=== PATIENT | male | born 1995 | race Caucasian/White ===

== ENCOUNTER 2022-12-22 22:25 | Emergency (ER) | payer OTHER, SELFPAY ==
[2022-12-22 22:29] VITALS: BP 139/65; PULSE 88; RESP 18; TEMP 36.7; O2SAT 98; BMI 40.9
--- NOTE | 2022-12-23 00:20 | ED.EYEPROB ---
HPI - Eye Problem General Chief complaint: Headache Stated complaint: headache behind right eye,feels off Time Seen by Provider: 12/23/22 00:07 Source: patient Mode of arrival: ambulatory Limitations: no limitations History of Present Illness HPI Narrative: Patient history of pterygium right eye been having more pain and redness for last 5 days after patient rubbed his right eye pain increased and I wall movement no discharge from the eye no headache no history of migraine no vision loss Related Data Previous Rx's Medication Instructions Recorded ketotifen fumarate 0.025 % (0.035 1 drp ophthalmic (eye) BID PRN 12/23/22 %) eye drops (Allergy Eye allergy symptoms #5 mL (ketotifen)) Allergies Allergy/AdvReac Type Severity Reaction Status Date / Time No Known Allergies Allergy Verified 12/22/22 22:29 Review of Systems Review of Systems: Yes all other systems are reviewed and are negative [facility] Social History Social History Advance Directives: No Advance Directives Information Provided: Yes Physical Exam Vital Signs: Vital Signs: Last Vital Signs Temp 98.0 F 12/22/22 22:29 Pulse 88 12/22/22 22:29 Resp 18 12/22/22 22:29 BP 139/65 12/22/22 22:29 Pulse Ox 98 12/22/22 22:29 O2 Del Method Room Air 12/22/22 22:29 BMI result Body Mass Index 40.9 Appearance: Alert. Oriented X3. No acute distress. Eyes: PERRLA, No Nystagmus normal cornea, anterior chamber N, IOP 12 both eyes ENT: Pharynx normal. Oral Mucosa moist Neck: Normal inspection. Neck supple. CVS: Normal heart rate and rhythm. Pulses normal. Respiratory: No respiratory distress. Equal air entry bilateral, no wheezing/rales/rhonchi Abdomen: Soft and nontender. Bowel sounds are present, no mass palpable, no CVA tenderness Skin: Skin warm and dry. Normal skin color. Normal skin turgor. Extremities: No lower extremity edema. No calf tenderness Neuro: Oriented X 3. No motor deficit. No sensory deficit.No cerebellar signs , cranial nerves II-XII intact Eyes: Eyes/upper lids images: 1. Pterygium on the right eye with slight erythema no covering of the cornea EOMI Medical Decision Making Medical Decision Making [facility] Narrative: Patient with inflammation of the right eye pterygium requested the CT scan of the head which was negative patient will be discharged advised to use ketoprofen eyedrops to and follow with eye doctor Differential Diagnosis Differential Diagnoses: The differential diagnosis associated with the presentation includes Allergic conjunctivitis/glaucoma/coronal abrasion/migraine Radiology Impression Discussion of test interpretation with radiology: I have reviewed the radiologist's reading. Discharge Plan Discharge Clinical Impression: Pterygium of right eye, Allergic conjunctivitis Patient Disposition: Home, Self-Care Instructions: Pterygium (ED), Conjunctivitis (ED) Additional Instructions: You have inflammation of the right eye pterygium use eyedrops as prescribed Follow-up with eye doctor if any concerns Prescriptions: New ketotifen fumarate [Allergy Eye (ketotifen)] 0.025 % (0.035 %) drops 1 drp ophthalmic (eye) BID PRN (Reason: allergy symptoms) Qty: 5 0RF Rx Instructions: administer at least 8 hours apart Referrals: Stevan Pichardo [Physician] - 1 week
== END 2022-12-23 02:09 | disposition home or self-care (01) ==
PROVIDERS: Emergency Provider Internal Medicine
DX: H11.001 Unspecified pterygium of right eye (principal); H10.11 Acute atopic conjunctivitis, right eye
CPT/HCPCS: 70450; 99284

== ENCOUNTER 2023-03-15 09:36 | Emergency (ER) | payer OTHER, SELFPAY ==
--- NOTE | ~2023-03-15 | US_ITS ---
EXAMINATION: US VENOUS ULTRASOUND WITH DOPPLER LOWER EXTREMITY, LEFT CLINICAL INFORMATION: Left lower extremity pain. Focal area of pain in the left mid calf. COMPARISON: None available. TECHNIQUE: Ultrasound of the deep veins is performed from the hip to the calf with compression sonography and color and pulse Doppler assessment. Spectral analysis with color-flow imaging is performed. FINDINGS: There is normal venous compression and respiratory variation and augmented flow. The visualized common femoral vein, superficial femoral vein, profunda femoral vein, popliteal vein, and the trifurcation region shows no evidence of deep venous thrombosis. There is no significant popliteal fossa cyst. Targeted ultrasound images obtained by the credit rating inspector of the area of pain at the left mid calf correlate with an apparent large varicosity with greater than 2338 m/s of reflux, and AP measurement of 0.6 cm. This varicosity appears to rise from the GSV at the level of the mid thigh. If the patient's symptoms persist, follow-up ultrasound in 5 days 7 days might be of value to exclude proximal propagation from a non-visualized calf vein. US/US venous duplex LE LT IMPRESSION: 1. No DVT demonstrated in the left lower extremity. 2. Large varicosity in the area of pain at the left mid calf correlate with an apparent large varicosity with greater than 2338 m/s of reflux, and AP measurement of 0.6 cm. This varicosity appears to rise from the GSV at the level of the mid thigh. 3. If the patient's symptoms persist, follow-up ultrasound in 5 days 7 days might be of value to exclude proximal propagation from a non-visualized calf vein. In the mid left calf correlates with apparent varicosity as detailed above. This study was presented today 03/15/2023 at 11:15 AM for interpretation. Stat results provided at this time as requested by referring provider.
[2023-03-15 09:43] VITALS: BP 127/73; PULSE 58; RESP 16; TEMP 36.3; O2SAT 97; BMI 41.6
--- OUTSIDE RECORDS SUMMARY | 2023-03-15 09:57 | XMS_ITS | Patient Health Record ---
Author Name Unknown Organization [address] Address [address] [facility] [address] [place] [address] Care Team Providers Care Larry Operator Name Role Phone YAIMA ELI Unavailable [phone] ALLERGIES No Known Allergies REASON FOR REFERRAL No Information MEDICATIONS Medication SIG (Take, Route, Fr equency, Duration) Notes Start Date End Date Status Dupixent 300 MG/2ML as directed Subcutaneous Active SOCIAL HISTORY Tobacco Use: Social History Observation Description Date Details (start date - stop date) Never Smoker NA - NA Sex Assigned At : Social History Observation Description Sex Assigned At Unknown Tobacco Use/Smoking Question Answer Notes Are you a nonsmoker PROBLEMS Problem Type ICD Code Onset Dates Problem Status W/U Status Risk SNOMED Code Notes Problem BMI 40.0-44.9, adult (Z68.41) Active confirmed Body mass index 40+ - morbidly obese (528400636) Problem Obesity, morbid, BMI 40.0-49.9 (E66.01) Active confirmed Morbid obesity (570165088) Problem Nasal polyp (J33.9) Active confirmed Nasal polyp (92886512) VITAL SIGNS Heart Rate 86 /min 01/03/2023 Blood pressure diastolic 82 mm Hg 01/03/2023 Oximetry 99 % 01/03/2023 Height 73 in 01/03/2023 Blood pressure systolic 120 mm Hg 01/03/2023 Weight 314.4 lbs 01/03/2023 BMI 41.48 kg/m2 01/03/2023 Encounters Encounter Location Date Provider Diagnosis [facility] [address] [place] [address] 01/24[facility]20[facility] [address] [place] [address] 01/03/2023 YAIMA [employer] Obesity, morbid, BMI 40.0-49.9 E66.01 ; BMI 40.0-44.9, adult Z68.41 ; Nasal polyp J33.9 ; Lipid screening Z13.220 and Screening for diabetes mellitus Z13.1 [facility] [address] [place] [address] 12/30/2022 YAIMA CARTER [employer] ASSESSMENTS Encounter Date Diagnosis Assessment Notes Treatment Notes Treatment Clinical Notes 01/03/2023 BMI 40.0-44.9, adult (ICD-10 - Z68.41) 01/03/2023 Obesity, morbid, BMI 40.0-49.9 (ICD-10 - E66.01) 01/03/2023 Nasal polyp (ICD-10 - J33.9) 01/03/2023 Lipid screening (ICD-10 - Z13.220) 01/03/2023 Screening for diabetes mellitus (ICD-10 - Z13.1) PLAN OF TREATMENT Pending Test Test Name Order Date LIPID PANEL, STANDARD 01/03/2023 HEMOGLOBIN A1c 01/03/2023 INSULIN 01/03/2023 Insurance Providers Payer Name Payer Address Payer Phone Subscriber Number Group Number Insured Name Patient Relationship to Insured Coverage Start Date Coverage End Date [employer] [place] [address] [address] [place] [address] [id number] PAULA PAUL Self - patient is the insured 3 MEDICAL (GENERAL) HISTORY Medical History History ICD Code nasal polyps morbid obesity Surgical History Surgery Date(Month/Year) nasal polyposis removal
--- NOTE | 2023-03-15 09:59 | ED_ITS ---
HPI - General Adult General Chief complaint: Extremity Injury, Lower Stated complaint: Pain left leg Time Seen by Provider: 03/15/23 09:42 Source: patient Mode of arrival: ambulatory Limitations: no limitations History of Present Illness HPI narrative: 27-year-old male presents with concerns of left lower extremity pain, swelling worsening over the past 2 days. Atraumatic. Patient reports family history of factor 5 Leiden however he does not have a personal history of this. He reports at baseline he does have varicose veins to that left lower extremity. He reports an aching pain in 1 particular area in his calf. Unable to tell me exactly what makes it better or worse. No fevers, chills, numbness, tingling Related Data Previous Rx's Medication Instructions Recorded ketotifen fumarate 0.025 % (0.035 1 drp ophthalmic (eye) BID PRN 12/23/22 %) eye drops (Allergy Eye allergy symptoms #5 mL (ketotifen)) ketorolac 10 mg tablet 10 mg PO TID PRN pain 5 days #15 03/15/23 tabs Allergies Allergy/AdvReac Type Severity Reaction Status Date / Time No Known Allergies Allergy Verified 03/15/23 09:42 Review of Systems Review of Systems: Constitutional : No Weight loss, No Fever, No Chills, No Fatigue, No Malaise ENT/Mouth : No sore throat, No Rhinorrhea Eyes: No Eye Pain, No Swelling, No Redness Cardiovascular : No Chest Pain, No SOB, No Dyspnea on Exertion, No Orthopnea, No Edema, No Palpitations Respiratory : No Cough, No Sputum, No Wheezing Gastrointestinal : No Nausea, No Vomiting, No Diarrhea, No Constipation, No abdominal Pain, No Hematochezia, No Melena Genitourinary : No Dysuria, No Urinary Frequency, No Hematuria, Musculoskeletal : No joint pain, No Myalgias, No Joint Swelling, + leg swelling Skin : No Skin Lesions, No rash Neuro : No Weakness, No Numbness, No Dizziness, No Headache Psych : No Anxiety/Panic, No Depression All other systems reviewed and are negative Yes all other systems are reviewed and are negative [facility] Past Medical History Attestation statement: The following information was validated with the patient. Source: old records reviewed and nursing notes reviewed Social History Social History Smoked in Last 30 Days: No Advance Directives: No Advance Directives Information Provided: No Physical Exam ED Vital Signs: Vital Signs - 24 hr 03/15/23 09:43 Temperature 97.4 F Pulse Rate 58 Respiratory Rate 16 Blood Pressure 127/73 Pulse Oximetry 97 Oxygen Delivery Method Room Air BMI result Body Mass Index 41.6 vss Appearance: Alert.? Oriented X3.? No acute distress.? Head: Normocephalic, atraumatic, no step-offs or deformities Eyes: Pupils equal, round and reactive to light.? ENT: Pharynx normal.? Neck: Normal inspection.? Neck supple.? CVS: Normal heart rate and rhythm.? Pulses normal.? Respiratory: No respiratory distress.? Breath sounds normal.? Skin: Skin warm and dry.? Normal skin color.? Normal skin turgor.? Extremities: +1+ lle edema from the orona down, no edema to RLE. Slight discomfort w/ manipulation of L calf. No discomfort w/ manipulation of right calf. 2+ popliteal, DP,AT pulses equal and b/l. No foot drop. Normal sensation distally. + vericose veins to LLE. 5/5 strength to bilateral upper and lower extremities Neuro: Oriented X 3.? No motor deficit.? No sensory deficit. CN 2-12 intact Course Reevaluation(s) Reevaluation #1: Ultrasound without DVT. Large varicosity in the area of pain in the left mid calf, will have him follow-up with vascular, give him vascular is information. Will give Toradol. Educated patient on diagnosis and treatment plan, answered all question, patient verbalizes understanding. At this time patient will be discharged home, advised to return with new or worsening symptoms. Educated on worrisome signs and symptoms and when to return. At this time I feel comfortable discharge home. Time: 11:35 Medical Decision Making Medical Decision Making MDM Narrative: 27-year-old male presents with left lower extremity pain, swelling X 2 days On exam +1+ lle edema from the orona down, no edema to RLE. Slight discomfort w/ manipulation of L calf. No discomfort w/ manipulation of right calf. 2+ popliteal, DP,AT pulses equal and b/l. No foot drop. Normal sensation distally. + vericose veins to LLE. 5/5 strength to bilateral upper and lower extremities Likely thrombophlebitis versus DVT. Unlikely arterial occlusion, threat to limber neurovascular compromise. No signs of cellulitis. Plan at this time will obtain DVT study. Differential Diagnosis Differential Diagnoses: The differential diagnosis associated with the presentation includes Likely thrombophlebitis versus DVT. Unlikely arterial occlusion, threat to limber neurovascular compromise. No signs of cellulitis. Admission/Observation Consideration of admission/observation: Escalation of care including admission/observation considered unlikely Independent Interpretation I performed an independent interpretation of an: Ultrasound Radiology Impression Discussion of test interpretation with radiology: I have reviewed the radiologist's reading. Critical Care Time Critical Care Time Critical Care Time: No Discharge Plan Discharge Clinical Impression: Thrombophlebitis, Varicose vein of leg Patient Disposition: Home, Self-Care Additional Instructions: Take your medications as prescribed. If you were prescribed antibiotics today, it is important that you take your medication to their entirety, do not skip any doses, do not finish them early. Follow-up with your primary care provider this week. Return to the emergency department with new or worsening symptoms. Such as fevers, chills, chest pain, shortness of breath, nausea, vomiting, dizziness, headache, vision changes, lethargy In case of emergency call 911 Toradol has been sent to your pharmacy, you tolerated this well in the department. Please take this as prescribed do not take this with ibuprofen, or other NSAIDs, do not mix this with alcohol. Side effects of this medication including increased risk for bleeding and possible kidney injury. US/US venous duplex LE LT IMPRESSION: 1. No DVT demonstrated in the left lower extremity. 2. Large varicosity in the area of pain at the left mid calf correlate with an apparent large varicosity with greater than 2338 m/s of reflux, and AP measurement of 0.6 cm. This varicosity appears to rise from the GSV at the level of the mid thigh. 3. If the patient's symptoms persist, follow-up ultrasound in 5 days 7 days might be of value to exclude proximal propagation from a non-visualized calf vein. In the mid left calf correlates with apparent varicosity as detailed above. This study was presented today 03/15/2023 at 11:15 AM for interpretation. Stat results provided at this time as requested by referring provider. Prescriptions: New ketorolac 10 mg tablet 10 mg PO TID PRN (Reason: pain) 5 Days Qty: 15 0RF No Action ketotifen fumarate [Allergy Eye (ketotifen)] 0.025 % (0.035 %) drops 1 drp ophthalmic (eye) BID PRN (Reason: allergy symptoms) Qty: 5 0RF Rx Instructions: administer at least 8 hours apart Referrals: Jt Byrnes MD [Physician] - 1 day Mario Oliva DO, MD [Primary Care Provider] - 2 days
[2023-03-15] MEDS: Ketorolac Tromethamine 30 MG/ML VIAL IM (12:24)
== END 2023-03-15 12:27 | disposition home or self-care (01) ==
PROVIDERS: Emergency Provider Emergency Medicine Emergency Medical Services; PCP Internal Medicine
DX: I80.3 Phlebitis and thrombophlebitis of lower extremities, unspecified (principal); I83.92 Asymptomatic varicose veins of left lower extremity
CPT/HCPCS: 93971; 96372; 99284; J1885

== ENCOUNTER 2023-06-30 08:28 | Outpatient (REF) | payer OTHER, SELFPAY ==
[2023-06-30 08:48] LABS: MANUAL DIFF FLAG NO
[2023-06-30 09:26] LABS: Basophils Percent Auto 0.7 % (0-2); Eosinophils Absolute Auto 0.5 X10*3/uL (0.0-0.4); Eosinophils Percent Auto 8.3 % (0-4); Hematocrit 45.3 % (42.0-52.0); Imm Gran Abs Auto 0.02 X10*3/uL (0.00-0.03); Imm Gran Pct Auto 0.3 % (0.0-0.4); Lymphocytes Percent Auto 33.7 % (20-40); Mean Corpuscular HGB Conc 33.1 g/dl (31.0-36.0); Mean Corpuscular Hemoglobin 29.8 pg (27.0-33.0); Mean Corpuscular Volume 89.9 fL (80.0-98.0); Mean Platelet Volume 10.2 fL (9.4-12.4); Monocytes Absolute Auto 0.3 X10*3/uL (0.1-1.2); Monocytes Percent Auto 4.8 % (2-11); Neutrophils Percent Auto 52.2 % (45-73); Platelet Count 251 X10*3/uL (160-400); Red Blood Count 5.04 X10*6/uL (4.60-5.80); Red Cell Distribution Width 12.3 % (11.0-16.0); White Blood Count 5.8 X10*3/uL (4.8-10.8)
[2023-06-30 09:44] LABS: C Reactive Protein 0.16 mg/dL (< or = 0.50)
[2023-06-30 09:49] LABS: Rheumatoid Factor < 13.0 IU/mL (<15.0)
[2023-06-30 10:09] LABS: Erythrocyte Sedimentation Rate 14 MM/HR (0-15)
[2023-07-03 11:43] LABS: Anti Nuclear Antibody Screen NEGATIVE (NEGATIVE)
[2023-07-05 20:44] LABS: Angiotensin Converting Enzyme 69 U/L (9-67)
== END 2023-06-30 08:29 | disposition home or self-care (01) ==
LOC: HO.LAB 08:28
PROVIDERS: Visit Provider Ophthalmology
DX: H15.091 Other scleritis, right eye (principal)
CPT/HCPCS: 82164; 85025; 85652; 86038; 86140; 86431; 86780

== ENCOUNTER 2023-09-08 18:53 | Emergency (ER) | payer OTHER, SELFPAY ==
[2023-09-08 18:56] VITALS: BP 118/59; PULSE 78; RESP 17; TEMP 36.7; O2SAT 96; BMI 38.5
--- NOTE | 2023-09-08 18:56 | ED_ITS ---
HPI - General Adult General Chief complaint: Extremity Injury, Upper Stated complaint: Needle stick @ work Time Seen by Provider: 09/08/23 18:54 Source: patient Mode of arrival: ambulatory Limitations: no limitations History of Present Illness ED Provider: Michelle Wayne PA-C HPI narrative: Patient is a 27 year old assigned male at with no reported medical history presenting to the emergency department today with a blood exposure. 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 Patient denies any dizziness, lightheadedness, abdominal pain, nausea, vomiting, fever, chills, blurry vision, double vision, loss of vision, chest pain, difficulty breathing, shortness of breath, back pain, night sweats, pain with urination, increased urinary frequency, increased urinary urgency, blood in his urine or stool, syncope or a near syncopal episode, bowel incontinence, bladder incontinence, or any other complaints at this time. Onset (ago): minute(s) Location: left and upper extremity Radiation: non-radiation Severity: mild Severity scale (1-10): 2 Relieving factors: none Exacerbating factors: none Associated symptoms: denies other symptoms Treatments prior to arrival: other (washed the area multiple times) Related Data Previous Rx's ?Medication ?Instructions ?Recorded ketotifen fumarate 0.025 % (0.035 1 drp ophthalmic (eye) BID PRN 12/23/22 %) eye drops (Allergy Eye allergy symptoms #5 mL (ketotifen)) ketorolac 10 mg tablet 10 mg PO TID PRN pain 5 days #15 03/15/23 tabs Allergies Allergy/AdvReac Type Severity Reaction Status Date / Time No Known Allergies Allergy Verified 09/08/23 19:01 Review of Systems 2 Constitutional: Constitutional: Reports no additional constitutional complaints, Denies chills, Denies fever(s) and Denies night sweats Eyes: Eyes: Reports no additional eye complaints, Denies blurry vision, Denies change in vision, Denies diplopia, Denies eye discharge, Denies loss of vision and Denies eye pain ENT: Denies dizziness Cardiovascular: Cardiovascular: Reports no additional cardiovascular complaints, Denies chest pain, Denies lightheadedness, Denies Loss of Consciousness and Denies dyspnea Respiratory: Respiratory: Reports no additional respiratory complaints and Denies dyspnea Gastrointestinal: Gastrointestinal: Reports no additional gastrointestinal complaints, Denies abdominal pain, Denies melena, Denies hematochezia, Denies change in bowel habits and Denies change in stool character Genitourinary: Genitourinary: Reports no additional male genitourinary complaints, Denies hematuria, Denies oliguria, Denies difficulty urinating, Denies dysuria, Denies urinary frequency, Denies urinary hesitancy, Denies urinary incontinence and Denies urinary urgency Musculoskeletal: Musculoskeletal: Reports no additional musculoskeletal complaints, Denies numbness and Denies tingling Neurologic: Denies dizziness, Denies loss of vision, Denies numbness and Denies tingling Psychiatric: Psychiatric: Reports no additional psychiatric complaints Endocrine: Endocrine: Reports no additional endocrine complaints Hematologic/Lymphatic: Hematologic/Lymphatic: Reports no additional hematologic/lymphatic complaints Allergic/Immunologic: Allergic/Immunologic: Reports no additional allergic/immunologic complaints PMFSH Social History Social History Advance Directives: No Advance Directives Information Provided: No Do you have a plan to hurt others: No Plan Physical Exam ED Vital Signs: Vital Signs - 24 hr 09/08/23 18:56 Temperature 98.0 F Pulse Rate 78 Respiratory Rate 17 Blood Pressure 118/59 L Pulse Oximetry 96 Oxygen Delivery Method Room Air BMI result Body Mass Index 38.5 Medical Decision Making Medical Decision Making MDM Narrative: Patient is a 27 year old assigned male at with no reported medical history presenting to the emergency department today with a blood exposure. Patient's physical exam was unremarkable. Patient's blood work was unremarkable. Patient's hepatitis and HIV testing is pending. I explained my physical exam findings as well as all test results to the patient. I answered all questions asked by the patient. We discussed at length whether or not to start prophylaxis exposure treatment. Through shared decision making, we decided to wait starting prophylactic treatment. I stressed the importance of the patient taking his medication as prescribed. I stressed the importance of the patient following up with his primary care provider and [facility]. I stressed the importance of the patient returning to the emergency department immediately if his symptoms were to worsen or if he were to develop any dizziness, shortness of breath, difficulty breathing, chest pain, blurry vision, loss of vision, nausea, vomiting, abdominal pain, fever, chills, back pain, or any other complaints. Patient verbalized agreement and understanding with this treatment plan and discharge. Differential Diagnosis Differential Diagnoses: The differential diagnosis associated with the presentation includes Blood exposure Admission/Observation Consideration of admission/observation: Escalation of care including admission/observation considered Patient would have been admitted to the hospital had his work up had any findings where hospital admission was appropriate and his clinical presentation warranted hospital admission. Lab Data MDM Lab Attestation statement: I reviewed the patient's lab results. My interpretation of these studies and their corresponding values is that they are grossly normal. 09/08/23 19:24 09/08/23 19:24 Labs: Lab Results 09/08/23 Range/Units 19:24 WBC 9.4 (4.8-10.8) X10*3/uL RBC 5.16 (4.60-5.80) X10*6/uL Hgb 16.0 (14.0-18.0) g/dl Hct 45.6 (42.0-52.0) % MCV 88.4 (80.0-98.0) fL MCH 31.0 (27.0-33.0) pg MCHC 35.1 (31.0-36.0) g/dl RDW 12.2 (11.0-16.0) % Plt Count 242 (160-400) X10*3/uL MPV 10.1 (9.4-12.4) fL Immature Gran % (Auto) 0.3 (0.0-0.4) % Neut % (Auto) 60.0 (45-73) % Lymph % (Auto) 27.9 (20-40) % Jack % (Auto) 5.5 (2-11) % Eos % (Auto) 5.8 H (0-4) % Baso % (Auto) 0.5 (0-2) % Lymph # (Auto) 2.6 (1.2-4.9) X10*3/uL Jack # (Auto) 0.5 (0.1-1.2) X10*3/uL Eos # (Auto) 0.6 H (0.0-0.4) X10*3/uL Baso # (Auto) 0.1 (0.0-0.2) X10*3/uL Abs Immat Gran (auto) 0.03 (0.00-0.03) X10*3/uL Absolute Neuts (auto) 5.6 (2.0-8.3) x10*3/uL Absolute Nucleated RBC 0.000 (0.0-0.012) X10*3/uL Nucleated RBC % (auto) 0.0 (0.0-0.2) /100WBC Sodium 138 (135-145) mmol/L Potassium 4.4 (3.3-5.1) mmol/L Chloride 103 (96-108) mmol/L Carbon Dioxide 27 (22-29) mmol/L Anion Gap 12 (12-20) BUN 13 (9-16) mg/dL Creatinine 0.84 (0.5-1.4) mg/dL Estim Creat Clear Calc 190.4 Estimated GFR > 60 Random Glucose 83 (60-115) mg/dL Calcium 9.8 (8.4-10.2) mg/dL Total Bilirubin 0.3 (0.0-1.0) mg/dL AST 28 (5-37) U/L ALT 31 (0-40) U/L Alkaline Phosphatase 56 (39-117) U/L Total Protein 7.0 (6.5-8.0) g/dL Albumin 3.7 (3.5-5.0) g/dL Discharge Plan Discharge Clinical Impression: Employee exposure to blood Patient Disposition: Home, Self-Care Instructions: Postexposure Prophylaxis (ED) Additional Instructions: Follow up with your primary care provider and the [facility]. Return to the emergency department immediately if your symptoms worsen or if you develop any dizziness, shortness of breath, difficulty breathing, chest pain, blurry vision, loss of vision, nausea, vomiting, abdominal pain, fever, chills, back pain, or any other complaints. Please see the information below about our Patient Portal. If you are not yet enrolled in the [facility] Patient Portal, you will receive an enrollment email invitation following your visit to any [facility] care setting. You may also self-enroll in the Patient Portal by visiting our website: [email or web address] The following information is required to access the Patient Portal: - Your [facility] Medical Record Number - Your personal home email address (must match what is in your electronic medical record, Registration staff can assist with this) - Name - Date of Capabilities of the Patient Portal: - Message some providers - View upcoming appointments - Access your health summary, medical history, and visit history - View current conditions and allergies - View procedure and lab results - View your medications, including guidelines, side effects, and precautions - Complete pre-appointment questionnaires requested by your provider - Ready summary reports of your office visits and procedures To access the Patient Portal Mobile [employer], follow these directions: - Search [employer] in the [employer] Store or AppUpper - [employer] Store - Download the [employer]ul - Search for [facility] - Enter your login/password Prescriptions: No Action ketotifen fumarate [Allergy Eye (ketotifen)] 0.025 % (0.035 %) drops 1 drp ophthalmic (eye) BID PRN (Reason: allergy symptoms) Qty: 5 0RF Rx Instructions: administer at least 8 hours apart ketorolac 10 mg tablet 10 mg PO TID PRN (Reason: pain) 5 Days Qty: 15 0RF Referrals: [facility] [Provider Group] (Call to establish and follow up with [facility].) Mario Oliva DO, MD [Primary Care Provider] - Print Language: [place] African
[2023-09-08 19:26] VITALS: BP 118/59; PULSE 78; RESP 17; TEMP 36.7; O2SAT 96
[2023-09-08 19:30] LABS: MANUAL DIFF FLAG NO
[2023-09-08 19:35] LABS: Basophils Absolute Auto 0.1 X10*3/uL (0.0-0.2); Basophils Percent Auto 0.5 % (0-2); Eosinophils Absolute Auto 0.6 X10*3/uL (0.0-0.4); Eosinophils Percent Auto 5.8 % (0-4); Hematocrit 45.6 % (42.0-52.0); Imm Gran Abs Auto 0.03 X10*3/uL (0.00-0.03); Imm Gran Pct Auto 0.3 % (0.0-0.4); Lymphocytes Absolute Auto 2.6 X10*3/uL (1.2-4.9); Lymphocytes Percent Auto 27.9 % (20-40); Mean Corpuscular HGB Conc 35.1 g/dl (31.0-36.0); Mean Corpuscular Volume 88.4 fL (80.0-98.0); Mean Platelet Volume 10.1 fL (9.4-12.4); Monocytes Absolute Auto 0.5 X10*3/uL (0.1-1.2); Monocytes Percent Auto 5.5 % (2-11); Neutrophils Absolute Auto 5.6 x10*3/uL (2.0-8.3); Platelet Count 242 X10*3/uL (160-400); Red Blood Count 5.16 X10*6/uL (4.60-5.80); Red Cell Distribution Width 12.2 % (11.0-16.0); White Blood Count 9.4 X10*3/uL (4.8-10.8)
[2023-09-08 19:47] LABS: Alanine Aminotransferase 31 U/L (0-40); Albumin Level 3.7 g/dL (3.5-5.0); Alkaline Phosphatase 56 U/L (39-117); Anion Gap 12 (12-20); Aspartate Amino Transferase 28 U/L (5-37); Bilirubin Total 0.3 mg/dL (0.0-1.0); Blood Urea Nitrogen 13 mg/dL (9-16); Calcium 9.8 mg/dL (8.4-10.2); Carbon Dioxide 27 mmol/L (22-29); Chloride 103 mmol/L (96-108); Creatinine Clr Calc Pharmacy 190.4; Estimated Glomerular Filt Rate > 60; Glucose Random 83 mg/dL (60-115); Potassium 4.4 mmol/L (3.3-5.1); Sodium 138 mmol/L (135-145)
[2023-09-11 08:18] LABS: HBS Num1 132.83 mIU/mL (0-7.99); HBc Num1 0.06 S/CO (0.00-0.79); HBsAGNum1 0.22 S/CO (0.00-0.99); HIV AB/AG Nonreactive (Nonreactive); HIV Num 1 0.06 S/CO (0.00-0.99); Hepatitis B Core Antibody Nonreactive (Nonreactive); Hepatitis B Surface Antigen Negative (Negative); ~HepC Num1 0.31 S/CO (0.00-0.79); ~Hepatitis B Surface Antibody REACTIVE (Nonreactive); ~Hepatitis C Antibody Nonreactive (Nonreactive)
== END 2023-09-08 19:26 | disposition home or self-care (01) ==
PROVIDERS: Physician Assistant Medical; Emergency Provider Emergency Medicine; PCP Internal Medicine
DX: S61.432A Puncture wound without foreign body of left hand, initial encounter (principal); M79.642 Pain in left hand; X58.XXXA Exposure to other specified factors, initial encounter; Y93.89 Activity, other specified; Y92.239 Unspecified place in hospital as the place of occurrence of the external cause; Y99.0 Civilian activity done for income or pay; Z79.899 Other long term (current) drug therapy
CPT/HCPCS: 36415; 80053; 85025; 86704; 86706; 86803; 87340; 87389; 99283; 99284